=== PATIENT | female | born 1940 | race Caucasian/White ===

== ENCOUNTER 2017-02-16 08:35 | Day surgery (SDC) | payer MEDICARE, BC ==
[~2017-02-16 08:35] MED LIST: KETOROLAC TROMETHAMINE 0.45% 4 DROP/0.4 ML DROPERETTE OS PRN; MIDAZOLAM 2 MG/2 ML INJ ONE
[2017-02-16] MEDS ORDERED: CHONDR SU A NA/HYALUR INTRAOC KIT (SURGICARE) ONE (08:37)
[2017-02-16] MEDS: CYCLOPENTOLATE 0.2%/PHENYLEPHRINE 1% OPH SOLN 2 ML OS PRN ×3 (08:55→09:15)
[2017-02-16] MEDS: TETRACAINE HCL 0.5% OPH SOLN 2 ML OS PRN ×3 (08:55→09:30)
[2017-02-16] MEDS: BESIFLOXACIN HCL 0.6% OPH SUSP 5 ML BOTTLE OS PRN ×3 (08:56→09:57)
[2017-02-16] MEDS: TROPICAMIDE 1% OPH SOLN 3 ML OS PRN ×3 (08:56→09:15)
[2017-02-16] MEDS: EPINEPHRINE INJ/PF 1 MG/1 ML AMPULE ONE ×2 (09:30→09:43)
[2017-02-16] MEDS: LIDOCAINE 1% INJ-PF (10 MG/ML) 30 ML SDV ONE ×2 (09:43→09:45)
--- NOTE | 2017-02-16 20:58 | [facility] DISCHARGE SUMMARY E ---
[facility] Discharge Summary NAME: AALIYAH LUIS AGE: 76Y ADMITTED: 02/16/2017 DISCHARGED: 02/16/2017 FINAL DIAGNOSIS: CATARACT, LEFT EYE. HISTORY/CLINIC COURSE: This is a 76-year-old female who underwent cataract extraction without complication, woke up in postoperative recovery in stable condition. She underwent surgery because she was having difficulty reading small print. Patient is to be on a regular diet. No bending at the waist, no heavy lifting. Patient should use the Besivance, Ilevro, and Durezol at 3 p.m. and 8 p.m., and sleep with a rigid shield. I will see her for 1 day postoperative tomorrow. DICTATING PHYSICIAN: MARIBEL RAMIREZ M.D. [id number] PHY#: [id number] 2022 ID: [id number] JOB#: [id number] ACCT: [id number] cc:MARIBEL RAMIREZ M.D. >
--- NOTE | 2017-02-16 20:58 | [facility] OPERATIVE REPORT E ---
[facility] Operative Report NAME: AALIYAH LUIS AGE: 76Y DATE OF SURGERY: 02/16/2017 ROOM: PREOPERATIVE DIAGNOSIS: CATARACT, LEFT EYE. POSTOPERATIVE DIAGNOSIS: CATARACT, LEFT EYE. OPERATION: Cataract extraction with intraocular lens implant of the left eye. SURGEON: MARIBEL RAMIREZ M.D. ANESTHESIA: Topical. PROCEDURE: After obtaining appropriate consent, the patient's left eye was prepped and draped in sterile fashion as well as the surgeon in a sterile manner and cataract surgery was started. First a paracentesis blade was used to make a small side-port incision. Viscoelastic was used to inflate the anterior chamber. Next a 2.4 mm incision was made with the paracentesis blade. A continuous capsulorrhexis incision was made using a cystotome and Utrata forceps. Following this hydrodissection was carried out to make the lens fully loose and mobile and it was rotated 90 degrees. Following this, a lgcroh-puf-zquzdzn technique was used to phacoemulsify the lens with a CDE of 8.24. The remaining cortex was removed with irrigation/aspiration. Provisc was instilled into the capsular bag to inflate the bag. A SN60WF, 20.0 diopter lens was placed. The remaining viscoelastic material was removed with irrigation/aspiration. Following this, a 10-0 nylon suture was used to close the incision and it was found to be watertight. Vigamox was instilled in the eye and a protective shield was placed over the eye. The patient returned to the postoperative recovery in stable condition. DICTATING PHYSICIAN: MARIBEL RAMIREZ M.D. [id number] PHY#: [id number] 2022 ID: [id number] JOB#: [id number] ACCT: [id number] cc:MARIBEL RAMIREZ M.D. >
== END 2017-02-16 10:38 | disposition home or self-care (01) ==
LOC: SC 08:35
PROVIDERS: ATTEND Internal Medicine
PROC: 08RK3JZ Replacement of Left Lens with Synthetic Substitute, Percutaneous Approach (ICD-10-PCS; principal; 2017-02-16 10:00)
DX: H25.12 Age-related nuclear cataract, left eye (principal); H26.491 Other secondary cataract, right eye; M19.90 Unspecified osteoarthritis, unspecified site; G43.909 Migraine, unspecified, not intractable, without status migrainosus; Z79.899 Other long term (current) drug therapy
CPT/HCPCS: 66984; V2632; J2250; J3490 ×2; A9270; J0171; 142